=== PATIENT | female | born 1985 | race American Indian/Alaskan Native ===

== ENCOUNTER 2017-12-28 09:06 | Emergency (ER) | payer OTHER ==
[2017-12-28 09:33] VITALS: BP 129/85; PULSE 88; RESP 20; TEMP 98.7; O2SAT 100
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
[2017-12-28 10:45] LABS: HCG,QUALITATIVE URINE NEGATIVE (NEGATIVE)
[2017-12-28 10:51] LABS: SQUAMOUS EPITHIAL 9 /hpf (0-5); URINE BILIRUBIN NEGATIVE (NEGATIVE); URINE BLOOD NEGATIVE (NEGATIVE); URINE CLARITY Hazy (Clear); URINE COLOR Yellow (YELLOW); URINE GLUCOSE (UA) NORMAL (Normal); URINE LEUKOCYTE ESTERASE NEG Leu/uL (Negative); URINE PROTEIN NEGATIVE (NEGATIVE); URINE UROBILINOGEN NORMAL mg/dL (0.2-1.0)
[2017-12-28] MEDS ORDERED: Emtricitabine-Tenofovir 200 mg-300 mg Tab PO STA (11:55)
[2017-12-28] MEDS ORDERED: cefTRIAXone (Rocephin) 250 mg Inj IM STA (11:55)
[2017-12-28] MEDS ORDERED: Emtricitabine-Tenofovir 200 mg-300 mg Tab PO NR (12:00)
[2017-12-28 12:08] LABS: ALB/GLOB RATIO 1.2 (1.0-2.1); ALBUMIN 4.7 g/dL (3.5-5.0); ALT/SGPT 25 U/L (9-52); AST/SGOT 20 U/L (14-36); BLOOD UREA NITROGEN 11 mg/dL (7-17); CALCIUM 9.2 mg/dl (8.6-10.4); GFR AFRICAN-AMERICAN > 60; GFR NON-AFRICAN AMERICAN > 60
== END 2017-12-28 14:04 | disposition home or self-care (01) ==
LOC: C.ER 09:06
DX: Z04.41 Encounter for examination and observation following alleged adult rape (principal)
CPT/HCPCS: 80053; 81001; 84702; 84703; 86703; 86706; 96372; 99285; J0696

== ENCOUNTER 2018-07-12 21:20 | Emergency (ER) | payer OTHER ==
[2018-07-12 21:20] VITALS: BMI 32.5
[2018-07-12] MEDS ORDERED: Sodium Chloride 0.9% 1,000 ML IV ONE (21:32)
[2018-07-12] MEDS ORDERED: Charcoal 50 gm/240 ml Susp PO STA (21:33)
[2018-07-12] MEDS ORDERED: Naloxone 0.4 mg/ml Inj (Adult) IV STA (21:39)
[2018-07-12] MEDS ORDERED: Sodium Chloride 0.9% 1,000 ML ONE (21:42)
[2018-07-12] MEDS ORDERED: Charcoal 50 gm/240 ml Susp ONE (21:54)
[2018-07-12] MEDS ORDERED: Naloxone 0.4 mg/ml Inj (Adult) ONE (21:54)
[2018-07-12 21:56] LABS: HEMOGLOBIN 14.1 g/dL (11.0-16.0); MEAN CELL VOLUME 86.5 fL (81.0-99.0); MEAN CORPUSCULAR HEMOGLOBIN 28.8 pg (27.0-31.0); MEAN CORPUSCULAR HGB CONC 33.2 g/dL (33.0-37.0); RBC 4.92 Mil/uL (3.80-5.20); RED CELL DISTRIBUTION WIDTH 14.3 % (11.5-14.5); WHITE BLOOD COUNT 11.8 K/uL (4.8-10.8)
[2018-07-12 21:57] LABS: BASO # 0.2 K/uL (0.0-0.2); BASO % 1.4 % (0.0-2.0); EOS # 0.2 K/uL (0.0-0.7); EOS % 1.9 % (0.0-4.0); LYMPH # 3.6 K/uL (1.0-4.3); LYMPH % 30.8 % (20.0-40.0); MEAN PLATELET VOLUME 9.3 fL (7.2-11.7); MONO % 8.6 % (0.0-10.0); NEUT # 6.8 K/uL (1.8-7.0); NEUT % 57.3 % (50.0-75.0); NRBC % 0.1 % (0.0-2.0)
[2018-07-12 22:13] LABS: ACETAMINOPHEN < 10.0 ug/mL (10.0-30.0); SALICYLATE < 1.0 mg/dL 1
[2018-07-12 22:18] LABS: VALPROIC ACID < 10.0 ug/mL (50.0-100.0)
[2018-07-12 22:22] LABS: ALB/GLOB RATIO 1.4 (1.0-2.1); ALBUMIN 4.4 g/dL (3.5-5.0); ALT/SGPT 61 U/L (9-52); AST/SGOT 22 U/L (14-36); BLOOD UREA NITROGEN 13 mg/dL (7-17); CALCIUM 10.1 mg/dl (8.6-10.4); GFR NON-AFRICAN AMERICAN > 60
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
[2018-07-12 22:43] LABS: HCG,QUALITATIVE URINE NEGATIVE (NEGATIVE)
[2018-07-12 22:48] LABS: SQUAMOUS EPITHIAL 14 /hpf (0-5); URINE BACTERIA RARE (<OCC); URINE BILIRUBIN NEGATIVE (NEGATIVE); URINE BLOOD 1+ (NEGATIVE); URINE CLARITY Hazy (Clear); URINE COLOR Yellow (YELLOW); URINE GLUCOSE (UA) NORMAL (Normal); URINE LEUKOCYTE ESTERASE 3+ Leu/uL (Negative); URINE PROTEIN NEGATIVE (NEGATIVE); URINE UROBILINOGEN NORMAL mg/dL (0.2-1.0)
[2018-07-12 22:58] LABS: BARBITURATES, UR NEGATIVE (NEGATIVE); BENZODIAZEPINES, UR NEGATIVE (NEGATIVE); OPIATES, UR NEGATIVE (NEGATIVE)
[2018-07-12 23:03] LABS: PHENCYCLIDINE, UR POSITIVE (NEGATIVE)
[2018-07-13] MEDS ORDERED: Sodium Chloride 0.9% 1,000 ML IV ONE ×2 (07:49→10:44)
[2018-07-13] MEDS ORDERED: Sodium Chloride 0.9% 1,000 ML ONE ×2 (07:50→11:45)
--- NOTE | 2018-07-13 09:29 | RAD ---
Date of service: 07/12/2018 PROCEDURE: CHEST RADIOGRAPH, 1 VIEW HISTORY: Detox/Psy COMPARISON: Comparison chest dated 06/24/2018. FINDINGS: LUNGS: Poor inspiration with low lung volumes, crowded bronchovascular markings and minor bibasilar atelectasis. PLEURA: No pneumothorax or pleural fluid seen. CARDIOVASCULAR: Normal. OSSEOUS STRUCTURES: No significant abnormalities. VISUALIZED UPPER ABDOMEN: Normal. OTHER FINDINGS: Note made of what appears represent in situ tongue ring. IMPRESSION: Poor inspiration with low lung volumes, crowded bronchovascular markings and minor bibasilar atelectasis.
[2018-07-13 17:24] VITALS: TEMP 98.7
[2018-07-13 20:17] VITALS: BP 129/82; PULSE 96; RESP 18; O2SAT 98
--- NOTE | 2018-07-14 18:43 | CARD ---
APPROVED REPORT Date of service: 07/13/2018 EKG Measurement Heart [id number] <Conclusion> Normal sinus rhythm Possible Left atrial enlargement Borderline ECG
--- NOTE | 2018-07-14 18:44 | CARD ---
APPROVED REPORT Date of service: 07/13/2018 EKG Measurement Heart [id number] [place] 146P86 [id number] <Conclusion> Normal sinus rhythm Normal ECG
--- NOTE | 2018-07-14 21:00 | CARD ---
APPROVED REPORT Date of service: 07/12/2018 EKG Measurement Heart [id number] [place] 154P72 [id number] <Conclusion> Sinus tachycardia Possible Left atrial enlargement Borderline ECG
== END 2018-07-13 20:50 | disposition short-term general hospital (02) ==
LOC: C.ER 21:20
DX: F20.9 Schizophrenia, unspecified (principal); F16.10 Hallucinogen abuse, uncomplicated
CPT/HCPCS: 36415; 71045; 80053; 80164; 80178; 80320; 80324; 80329; 80345; 80346; 80349; 80353; 80358; 80361; 81001; 82550; 83605; 83735; 83992; 84100; 84703; 85025; 93005; 94770; 96361; 96374; 99285; J2310; J7030

== ENCOUNTER 2018-12-15 13:25 | Emergency (ER) | payer OTHER ==
[2018-12-15 13:25] VITALS: BMI 32.5
[2018-12-15 13:59] VITALS: BP 116/82; PULSE 122; RESP 18; TEMP 98.2; O2SAT 98
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
--- NOTE | 2018-12-15 15:47 | RAD ---
Date of service: 12/15/2018 PROCEDURE: Left Knee Radiographs. HISTORY: Pain. COMPARISON: None. FINDINGS: BONES: Bone alignment and mineralization are normal. There is no acute displaced fracture or bone destruction. JOINTS: Normal. No osteoarthritis. JOINT EFFUSION: None. OTHER FINDINGS: None. IMPRESSION: No acute fracture or dislocation.
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
== END 2018-12-15 21:23 | disposition home or self-care (01) ==
LOC: C.ER 13:25
DX: S83.92XA Sprain of unspecified site of left knee, initial encounter (principal); W06.XXXA Fall from bed, initial encounter; Y92.003 Bedroom of unspecified non-institutional (private) residence as the place of occurrence of the external cause; S09.90XD Unspecified injury of head, subsequent encounter; Y08.02XD Assault by strike by baseball bat, subsequent encounter